=== PATIENT | female | born 1940 | race African-American/Black ===

== ENCOUNTER 2017-01-24 07:37 | Day surgery (SDC) | payer OTHER ==
[2017-01-24] MEDS ORDERED: NS 1000 ML 1,000 ML ONE (07:58)
[2017-01-24] MEDS ORDERED: DIPRIVAN VIAL 20 ML ONE (08:11)
[2017-01-24] MEDS ORDERED: XYLOCAINE 2 % (PLAIN) ONE (08:12)
[2017-01-24 09:24] VITALS: BP 109/62
--- NOTE | 2017-01-24 10:28 | OR.GENERIC ---
Post-Op Note Generic - Post-Op Note Operative Report: Endoscopy Report January 24, 2017 Pre-Operative Diagnosis: Dysphagia. Post-Operative Diagnosis: 1. Gastroesophageal reflux disease. 2. Large hiatal hernia. 3. Distal esophageal stricture. 4. Gastric polyp. Procedures: 1. Esophagogastroduodenoscopy with biopsy (cold-biopsy forceps). 2. Esophageal dilation (Mckoy to 56 armenian). Surgeon: Ayush Antoine MD. Threat Analyst: Tori Smith CRNA. Specimen(s): 1. Gastric polyp. 2. Gastroesophageal junction mucosa. Estimated blood loss: Minimal. Complications: None. Summary: The patient is a 76 yo female who presented with dysphagia. The patient was offered esophagogastroduodenoscopy. The risk and benefits of the procedure including difficulty with anesthesia, bleeding, infection, as well as perforation were discussed with the patient. The patient understood these risks and requested the procedure. On January 24, 2017, the patient was brought to the endoscopy suite. A time out was performed verifying the patient and the procedure. A bite block was inserted. After satisfactory induction of monitored anesthesia care, an endoscope was advanced through the oropharynx, slowly through the esophagus, and into the stomach. Mild stenosis was noted in the distal esophagus. A hiatal hernia was seen. The stomach was insufflated. No gastritis, ulcers, or erosions were seen. The scope was maneuvered into the duodenum which was normal. No ulcers or erosions were seen in the duodenum. The scope was brought back into the stomach and retroflexed. A gastric polyp was noted. This was biopsied using cold-biopsy forceps and sent to pathology. The large hiatal hernia was again noted. The scope was straightened and then slowly withdrawn into the esophagus. Evidence of gastroesophageal reflux disease was seen. Biopsies of the mucosa at the gastroesophageal junction were taken and sent to pathology. The scope was brought back into the stomach and insufflation evacuated. The scope was withdrawn. The esophagus was then dilated using Mckoy dilators to 56 armenian. At this point, the procedure was terminated. The patient was awakened and taken to the recovery room in stable condition. There were no complications.
== END 2017-01-24 09:08 | disposition home or self-care (01) ==
LOC: SURG1 07:37
PROVIDERS: ATTEND Student in an Organized Health Care Education/Training Program
PROC: 0DB48ZX Excision of Esophagogastric Junction, Via Natural or Artificial Opening Endoscopic, Diagnostic (ICD-10-PCS; principal; 2017-01-24 11:30)
PROC: 0DB68ZX Excision of Stomach, Via Natural or Artificial Opening Endoscopic, Diagnostic (ICD-10-PCS; principal; 2017-01-24 11:30)
PROC: 0D757ZZ Dilation of Esophagus, Via Natural or Artificial Opening (ICD-10-PCS; principal; 2017-01-24 11:30)
PROC: 0DJ08ZZ Inspection of Upper Intestinal Tract, Via Natural or Artificial Opening Endoscopic (ICD-10-PCS; principal; 2017-01-24 11:30)
DX: R13.19 Other dysphagia (principal); K21.9 Gastro-esophageal reflux disease without esophagitis; K44.9 Diaphragmatic hernia without obstruction or gangrene; K22.2 Esophageal obstruction; K31.7 Polyp of stomach and duodenum; K22.8 Other specified diseases of esophagus
CPT/HCPCS: 99100; A4217; J2001; J3490